=== PATIENT | male | born 1970 | race Caucasian/White ===

== ENCOUNTER 2018-11-25 16:17 | Emergency (ER) | payer OTHER ==
[~2018-11-25] VITALS: Ht 180.3 cm; Wt 79.5 kg
[2018-11-25 19:37] VITALS: BP 137/79
== END 2018-11-25 19:58 | disposition home or self-care (01) ==
LOC: EMS 16:17
DX: F10.10 Alcohol abuse, uncomplicated (principal); G89.29 Other chronic pain; F17.210 Nicotine dependence, cigarettes, uncomplicated; F12.90 Cannabis use, unspecified, uncomplicated; F19.90 Other psychoactive substance use, unspecified, uncomplicated